=== PATIENT | male | born 1985 ===

== ENCOUNTER 2024-03-26 08:32 | Outpatient (REF) | payer SELFPAY ==
--- OUTSIDE RECORDS SUMMARY | 2024-03-26 08:36 | XMS_ITS | Clinical Summary ---
Author Organization [employer] Address [address] [place] [address] Care Team Providers Care Substation Technician Name Role Phone Unavailable Primary Care Provider Unavailabl e Allergies No known active allergies Encounters Date Type Department Care Team Description 03/25/2024 6:20 PM EST Office Visit [facility] [address] [place] [address] Blurry vision, bilateral (Primary Dx); Injury of right ankle, sequela from Last 3 Months Social History Tobacco Use Types Packs/Day Years Used Date Smoking Tobacco: Never Assessed Sex and Gender Information Value Date Recorded Sex Assigned at Male 03/25/2024 3:29 PM EST Legal Sex Male 10:29 AM EST Gender Identity Male 03/25/2024 3:29 PM EST Sexual Orientation Straight 03/25/2024 3: 29 PM EST Last Filed Vital Signs Vital Sign Reading Time Taken Comments Blood Pressure 142/79 03/25/2024 6:07 PM EST Pulse 101 03/25/2024 6:07 PM EST Temperature 36.6 ??C (97.9 ??F) 03/25/2024 6:07 PM ES T Respiratory Rate 18 03/25/2024 6:07 PM EST Oxygen Saturation 99% 03/25/2024 6:07 PM EST Inhaled Oxygen Concentration - - Weight 55.3 kg (122 lb) 03/25/2024 6:07 PM EST Height - - Body Mass Index - - Plan of Treatment Health Maintenance Due Date Last Done Comments Depression Screening 1986 HIV Screening 1986 Lipid Panel 1986 SDOH Screening 1986 Alcohol/Substance Use Screening 1998 Tobacco Screening 1998 Family Planning (PISQ) 2001 Hepatitis C Screening 2004 DTaP/Tdap/Td Vaccines (1 - Tdap) 2005 Hepatitis B Vaccines (1 of 3 - 19+ 3-dose series) 2005 COVID-19 Vaccine ( - 2023-2 5 season) 2023 Influenza Vaccine (#1) 2023 Zoster Vaccines (1 of 2) 2036 RSV Patients and Pa tients Aged 60 years or older (1 - 1-dose 75+ series) 2061 HIB Vaccines Aged Out No longer eligi ble based on patient's age to complete this topic HPV Vaccines Aged Out No longer eligi ble based on patient's age to complete this topic Hepatitis A Vaccines Aged Out No long er eligible based on patient's age to complete this topic IPV Vaccines Aged Out No longer eligi ble based on patient's age to complete this topic Meningococcal Vaccine Aged Out No bahman dustin eligible based on patient's age to complete this topic Pneumococcal Vaccine: Pediat rics (0 to 5 Years) and At-Risk Patients (6 to 49) Years) Aged Out No longer eligible b ased on patient's age to complete this topic RSV under 20 months Aged Out No longe r eligible based on patient's age to complete this topic Rotavirus Vaccines Aged Out No longer eligible based on patient's age to complete this topic [place] [address] [place] [address] [facility] FULL
--- OUTSIDE RECORDS SUMMARY | 2024-03-26 08:36 | XMS_ITS | Encounter Summary ---
Author Organization [employer] Address [address] [place] [address] Care Team Providers Care Cupola Worker Name Role Phone Unavailable Primary Care Provider Unavailabl e Reason for Visit * Reason Comments Blurred Vision Encounter Details Date Type Department Care Team (Late st Contact Info) Description 03/25/2024 6:20 PM EST Office Visit [facility] [address] [place] [id number] Blurry vision, bilateral (Primary Dx); Injury of right ankle, sequela Social History Tobacco Use Types Packs/Day Years Used Date Smoking Tobacco: Never Assessed Sex and Gender Information Value Date Recorded Sex Assigned at Male 03/25/2024 3:29 PM EST Legal Sex Male 10:29 AM EST Gender Identity Male 03/25/2024 3:29 PM EST Sexual Orientation Straight 03/25/2024 3: 29 PM EST documented as of this encounter Last Filed Vital Signs Vital Sign Reading [...] - - Body Mass Index - - documented in this encounter Plan of Treatment Scheduled Orders Name Type Priority Associated Diagnoses Orde r Schedule CBC auto differential Lab Routine Blurry vision, bilateral Expected: 03/25/2024 (Approximate), Expires: 03/25/2025 Comprehensive Metabolic Panel Lab Routine Blurry vision, bilateral Expected: 03/25/2024 (Approximate), Expires: 03/25/2025 Hemoglobin A1c Lab Routine Blurry vision, bilateral Expected: 03/25/2024 (Approximate), Expires: 03/25/2025 documented as of this encounter Visit Diagnoses Diagnosis Blurry vision, bilateral- Primary Other specified visual disturbances Injury of right ankle, sequela documented in this encounter
--- OUTSIDE RECORDS SUMMARY | 2024-03-26 08:36 | XMS_ITS | Clinical Summary ---
Author Organization [employer] [facility] ity Address [address] [place] [address] Care Team Providers Care Cap Maker Name Role Phone Unavailable Primary Care Provider Unavailabl e Social History Tobacco Use Types Packs/Day Years Used Date Smoking Tobacco: Never Assessed Sex and Gender Information Value Date Recorded Sex Assigned at Not on file Gender Identity Not on file Sexual Orientation Not on file Plan of Treatment Health Maintenance Due Date Last Done Comments DTaP,Tdap,and Td Vaccines (1 - Tdap) 2005 Hepatitis B Vaccines (1 of 3 - 19+ 3-dose series) 2005 Cholesterol Screening (Lipid Panel) 03/16/2023 Depression Screening 03/16/2023 HIV Screening 03/16/2023 Hepatitis C Screening 03/16/2023 Social Influencers of Health Screening 03/16/2023 COVID-19 Vaccine ( - 2023-2 5 season) 2023 Influenza Vaccine (#1) 2023 HIB Vaccines Aged Out No longer eligi [...] on patient's age to complete this topic MMR Vaccines Aged Out No longer eligi ble based on patient's age to complete this topic Meningococcal ACWY Vaccine Aged Out N o longer eligible based on patient's age to complete this topic Pneumococcal Vaccine: Pediat rics (0 to 5 Years) and At-Risk Patients (6 to 64 Years) Aged Out No longer eligible b ased on patient's age to complete this topic RSV Immunization Patients Un lalo 20 months Aged Out No longer eligible b ased on patient's age to complete this topic Varicella Vaccines Aged Out No longer eligible based on patient's age to complete this topic
[2024-03-26 10:57] LABS: MANUAL DIFF FLAG NO
[2024-03-26 11:04] LABS: Basophils Percent Auto 0.5 % (0-2); Eosinophils Absolute Auto 0.1 X10*3/uL (0.0-0.4); Eosinophils Percent Auto 1.4 % (0-4); Hematocrit 45.4 % (42.0-52.0); Hemoglobin 15.3 g/dl (14.0-18.0); Imm Gran Abs Auto 0.02 X10*3/uL (0.00-0.03); Imm Gran Pct Auto 0.3 % (0.0-0.4); Lymphocytes Absolute Auto 2.3 X10*3/uL (1.2-4.9); Lymphocytes Percent Auto 29.6 % (20-40); Mean Corpuscular HGB Conc 33.7 g/dl (31.0-36.0); Mean Corpuscular Hemoglobin 30.1 pg (27.0-33.0); Mean Corpuscular Volume 89.2 fL (80.0-98.0); Mean Platelet Volume 11.5 fL (9.4-12.4); Monocytes Absolute Auto 0.4 X10*3/uL (0.1-1.2); Monocytes Percent Auto 4.8 % (2-11); Neutrophils Absolute Auto 4.9 x10*3/uL (2.0-8.3); Neutrophils Percent Auto 63.4 % (45-73); Platelet Count 325 X10*3/uL (160-400); Red Blood Count 5.09 X10*6/uL (4.60-5.80); Red Cell Distribution Width 11.9 % (11.0-16.0); White Blood Count 7.7 X10*3/uL (4.8-10.8)
[2024-03-26 11:17] LABS: Hemoglobin A1C 572.2077 umol/L; Hemoglobin A1c % > 14.0 % (<6.0); Total Hemoglobin (HGBA1C) 4021.1358 umol/L
[2024-03-26 11:28] LABS: Alanine Aminotransferase 13 U/L (0-40); Albumin Level 4.4 g/dL (3.5-5.0); Alkaline Phosphatase 119 U/L (39-117); Anion Gap 15 (12-20); Aspartate Amino Transferase 16 U/L (5-37); Bilirubin Total 0.3 mg/dL (0.0-1.0); Blood Urea Nitrogen 11 mg/dL (9-16); Calcium 9.6 mg/dL (8.4-10.2); Carbon Dioxide 24 mmol/L (22-29); Chloride 104 mmol/L (96-108); Estimated Glomerular Filt Rate > 60; Potassium 3.8 mmol/L (3.3-5.1); Sodium 139 mmol/L (135-145); Total Protein 8.2 g/dL (6.5-8.0)
[2024-03-26 11:33] LABS: Glucose Random 353 mg/dL (60-115)
== END 2024-03-26 08:33 | disposition home or self-care (01) ==
LOC: HO.HHCL 08:32
PROVIDERS: Visit Provider Family Medicine
DX: H53.8 Other visual disturbances (principal); Z13.1 Encounter for screening for diabetes mellitus
CPT/HCPCS: 36415; 80053; 83036; 85025